=== PATIENT | female | born 1965 | race African-American/Black ===

== ENCOUNTER 2022-10-02 09:13 | Emergency (ER) | payer MEDICAID ==
[~2022-10-02] VITALS: Ht 172.7 cm; Wt 98.9 kg
[~2022-10-02 09:13] MED LIST: TRAM50TA3; [UNRECOGNIZED DRUG - REMARK]
[2022-10-02 09:28] VITALS: BP 108/73
--- NOTE | 2022-10-02 09:28 | NUR ---
pt wheelchair assist to bed 08
--- NOTE | 2022-10-02 09:53 | NUR ---
Patient being evaluated by physician at bedside.
[2022-10-02] MEDS ORDERED: HYDROcodone/APAP 5/325 MG 1 TAB TAB PO ONE (10:00)
--- NOTE | 2022-10-02 10:12 | NUR ---
X-Ray at bedside.
--- NOTE | 2022-10-02 11:47 | NUR ---
ASSISTED PER W/C TO BR TO VOID URINE. ABLE TO STAND AND TRANSFER TO TOILET SEAT
[2022-10-02 12:43] VITALS: BP 134/83
--- NOTE | 2022-10-02 12:44 | NUR ---
Patient discharged with v/s stable. Written and verbal after care instructions given and explained. Patient verbalized understanding. Ambulatory with steady gait. All questions addressed prior to discharge. Advised to follow up with PMD.
== END 2022-10-02 12:44 | disposition home or self-care (01) ==
LOC: MED 09:13
DX: S93.491A Sprain of other ligament of right ankle, initial encounter (principal); I10 Essential (primary) hypertension; Z79.82 Long term (current) use of aspirin; Z88.8 Allergy status to other drugs, medicaments and biological substances; Z79.899 Other long term (current) drug therapy; W18.30XA Fall on same level, unspecified, initial encounter; Y93.89 Activity, other specified; Y92.89 Other specified places as the place of occurrence of the external cause; Y99.8 Other external cause status
CPT/HCPCS: 73562; 73610; 73630; 99284; Q0092